=== PATIENT | male | born 1980 | race Caucasian/White ===

== ENCOUNTER 2017-11-17 20:56 | Emergency (ER) | payer OTHER ==
--- NOTE | 2017-11-17 21:00 | PDOC ---
History of Present Illness - General Chief Complaint: Pain, Acute Stated Complaint: ABDOMINAL PAIN Time Seen by Provider: 11/17/17 21:00 - History of Present Illness Initial Comments: This 37-year-old man, otherwise healthy, presents with a one-day history of right lower quadrant abdominal pain. Patient states that he has had pain in that area all day; pain is worse with eating and with movement. He admits that he had increased pain when automobile traveled over uneven surface on his way to the emergency room. He denies nausea/vomiting/change in BM/fever/chills today. He states that only change in diet was yesterday (ate excessively) because of holiday(). No previous history of this type of pain. No recent travel. Nonsmoker; social alcohol, no other recreational drug use Past History - Past Medical History Allergies/Adverse Reactions: Allergies Allergy/AdvReac Type Severity Reaction Status Date / Time No Known Allergies Allergy Verified 11/17/17 20:59 Home Medications: Ambulatory Orders NK [No Known Home Medication] 11/17/17 - Suicide/Smoking/Psychosocial Hx Smoking History: Never smoked Hx Alcohol Use: Yes (OCCASIONALLY) Substance Use Type: Alcohol Review of Systems - Review of Systems Able to Perform ROS?: Yes Comments:: 12 point review of systems is negative except for what is noted in the history of present illness *Physical Exam - Physical Exam Comments: GENERAL: Adult male, alert and oriented 3, in no acute distress HEAD: Normal with no signs of trauma. EYES: PERRLA, EOMI, sclera anicteric, conjunctiva clear. ENT: Ears normal, nares patent, oropharynx clear without exudates. Moist mucous membranes. NECK: Normal range of motion, supple without lymphadenopathy, JVD, or masses. LUNGS: Breath sounds equal, clear to auscultation bilaterally. No wheezes, and no crackles. HEART:Regular rate and rhythm, normal S1 and S2 without murmur, rub or gallop. ABDOMEN:.normal bowel sounds; point tenderness right lower quadrant ; No guarding or rebound.No masses No distention. EXTREMITIES: Normal range of motion, no edema. No clubbing or cyanosis. No erythema, or tenderness. NEUROLOGICAL: Cranial nerves II through XII grossly intact. Normal speech. No focal neurological deficits. MUSCULOSKELETAL: Back non-tender to palpation, no CVA tenderness SKIN: Warm, Dry, normal turgor, no rashes or lesions noted. ED Treatment Course - LABORATORY CBC & Chemistry Diagram: 11/17/17 21:05 11/17/17 21:05 Progress Note - Progress Note Progress Note: Laboratory evaluation of CBC/comprehensive chemistry profile/UA notable only for microscopic hematuria (2-5 RBCs per high-power field). Remainder of blood work including white blood cell count was normal. Abdominal/pelvic CT with IV contrast performed. Normal appearing appendix was visualized. Small and large intestine are normal without evidence of acute pathological process. There is a very small umbilical hernia containing fat only. There is a very small right renal hypodense lesion in the lower pole but no ureteral hydro-nephrosis. There is hepatic steatosis. Workup thus far is negative for acute appendicitis. Results discussed with the patient. He continues to feel well except for right lower quadrant pain/tenderness. The patient will be discharged with instructions to return if he has worsening pain or develops fever/vomiting. Otherwise he should follow-up with his general medical doctor within the next 48 hours *DC/Admit/Observation/Transfer Diagnosis at time of Disposition: Abdominal pain Qualifiers: Abdominal location: right lower quadrant Qualified Code(s): R10.31 - Right lower quadrant pain - Discharge Dispostion Disposition: HOME Condition at time of disposition: Stable - Referrals - Patient Instructions Printed Discharge Instructions: DI for Abdominal Pain-Adult Additional Instructions: Drink plenty of water Light diet Follow-up with your medical doctor within the next 48 hours Return to ER immediately if you have worsening pain/fever/vomiting - Post Discharge Activity
[2017-11-17 21:17] VITALS: PULSE 82; TEMP 98.3; BMI 30.1
[2017-11-17 21:21] LABS: BASO % 0.5 % (0-2.0); EOS % 3.2 % (0-4.5); HEMATOCRIT 44.6 % (35.4-49); LYMPH % 37.4 % (8-40); MCH 27.9 pg (25.7-33.7); MCHC 33.5 g/dl (32.0-35.9); MEAN CELL VOLUME 83.2 fl (80-96); MEAN PLT VOLUME 7.7 fl (7.5-11.1); NEUT % 50.9 % (42.8-82.8); PLATELET COUNT 241 K/MM3 (134-434); RBC 5.36 M/mm3 (4.00-5.60); WHITE BLOOD COUNT 9.5 K/mm3 (4.0-10.8)
[2017-11-17 21:25] LABS: PH,URINE 8.5 (4.5-8); URINE APPEARANCE Clear; URINE BILIRUBIN Negative (NEGATIVE); URINE GLUCOSE (UA) Negative (NEGATIVE); URINE KETONE Negative (NEGATIVE); URINE LEUK ESTERASE Negative (NEGATIVE); URINE NITRITE Negative (NEGATIVE); URINE PROTEIN Negative (NEGATIVE); URINE UROBILINOGEN 0.2 (0.2-1.0)
[2017-11-17 21:26] LABS: URINE BLOOD Trace-intact (NEGATIVE); URINE COLOR YELLOW
[2017-11-17 21:35] LABS: ALBUMIN 4.1 g/dl (3.5-5.0); ALK PHOS 75 U/L (32-92); ANION GAP 9 (8-16); BLOOD UREA NITROGEN 17 mg/dl (7-18); CALCIUM 9.3 mg/dl (8.4-10.2); CHLORIDE 100 mmol/L (98-107); CO2 28 mmol/L (22-28); GLUCOSE,RANDOM 97 mg/dl (74-106); POTASSIUM 4.1 mmol/L (3.5-5.1); SGOT/AST 24 U/L (10-42); SGPT/ALT 34 U/L (10-40); SODIUM 137 mmol/L (136-145); TOT PROT 6.9 g/dl (6.4-8.3)
[2017-11-17 21:56] LABS: BILIRUBIN,TOTAL 0.5 mg/dl (0.2-1.0)
[2017-11-17 22:12] LABS: EPI CELLS NONE SEEN /HPF; URINE BACTERIA NONE SEEN /hpf (NEGATIVE); URINE WBC 0-2 (0-2)
[2017-11-17 23:23] VITALS: BP 151/106
== END 2017-11-17 23:55 | disposition home or self-care (01) ==
LOC: FER 20:56
DX: R10.31 Right lower quadrant pain (principal)
CPT/HCPCS: 36415; 74177-TC; 80053; 81003; 81015; 85025; 99281-25

== ENCOUNTER 2022-01-01 09:43 | Emergency (ER) | payer OTHER ==
[2022-01-01 10:32] VITALS: PULSE 78; BMI 34.2
[2022-01-01] MEDS ORDERED: BEBTELOVIMAB (EUA) 175 MG/2 ML VIAL IVPUSH ONE (11:13)
[2022-01-01 13:22] VITALS: BP 136/78; TEMP 98.9
== END 2022-01-01 13:22 | disposition home or self-care (01) ==
LOC: JCOVINFU 09:43
DX: U07.1 COVID-19 (principal)
CPT/HCPCS: 99284-25; M0222; Q0222

== ENCOUNTER 2022-11-05 10:58 | Emergency (ER) | payer OTHER ==
[2022-11-05 11:19] VITALS: BP 142/97; PULSE 90; RESP 16; TEMP 98.6; BMI 33.0
[2022-11-05] MEDS ORDERED: SODIUM CHLORIDE 1,000 ML IV ONE (11:24)
[2022-11-05 12:35] LABS: PROTHROMBIN TIME (PATIENT) 11.5 SEC (9.7-13.0)
[2022-11-05 12:42] LABS: ALBUMIN 3.9 g/dl (3.4-5.0); BILIRUBIN,TOTAL 0.5 mg/dl (0.2-1); CREATININE 0.9 mg/dl (0.55-1.3); TOT PROT 6.5 g/dl (6.4-8.2)
[2022-11-05 12:59] LABS: HEMATOCRIT 42.5 % (35.4-49); HEMOGLOBIN 14.5 G/dL (11.7-16.9); MCH 28.9 pg (25.7-33.7); MCHC 34.1 g/dl (32.0-35.9); MEAN CELL VOLUME 84.7 fl (80-96); MEAN PLT VOLUME 8.3 fl (7.5-11.1); PLATELET COUNT 178.7 10^3/uL (134-434); RBC 5.02 10^6/uL (4.00-5.60); RDW 14.9 % (11.9-15.9); WHITE BLOOD COUNT 6.2 10^3/uL (4.0-10.8)
[2022-11-05 16:08] LABS: EPITHELIAL CELLS RARE /hpf
== END 2022-11-05 14:32 | disposition home or self-care (01) ==
LOC: FER 10:58
PROC: 3E0337Z Introduction of Electrolytic and Water Balance Substance into Peripheral Vein, Percutaneous Approach (ICD-10-PCS; principal; 2022-11-05)
DX: R10.31 Right lower quadrant pain (principal)
CPT/HCPCS: 36415; 74177-TC; 80053; 81003; 81015; 83690; 85027; 85610; 85730; 86850; 86900; 86901; 93005; 99285-25; Q9967